=== PATIENT | female | born 1940 | race Caucasian/White ===

== ENCOUNTER → 2018-11-04 10:38 | Outpatient (CLI) | payer MEDICARE, SELFPAY ==
--- NOTE | 2018-11-04 11:19 | US_ITS ---
US Arterial Lower Ext Rest History: Rest pain, claudication, ex-smoker ORDERING PHYSICIAN: Carlo Cross PATIENT AGE: 78 years TECHNIQUE: Segmental pressures obtained of both right and left leg. These are compared to brachial blood pressure to yield index at each level sampled including summary NINI. The data sheets from the procedure are available in PACS FINDINGS Rest study only performed today No prior studies available for comparison. Blood pressures reported are in millimeters mercury. RIGHT LEG NINI = 1.2. RIGHT LEG TBI=.8 Brachial BP: 101 Thigh BP: 119 Calf BP: 121 Ankle PT: 130 Ankle DP : 101 Digit =83 LEFT LEG NINI = 1.1 LEFT LEG TBI= .9 Brachial BPD: 105 Thigh BP: 118 Calf BP: 137 Ankle PT:115 Ankle DP: 121 Digit = 98 Pulses and waveforms: Waveforms are normal. Pulses were diminished IMPRESSION: The ABIs as reported above are within normal limits. Waveforms are also unremarkable with diminished pulses.
== END ==
PROVIDERS: PCP Nurse Practitioner Family; Visit Provider Neurological Surgery
DX: I70.213 Atherosclerosis of native arteries of extremities with intermittent claudication, bilateral legs (principal); M79.604 Pain in right leg; M79.605 Pain in left leg; R29.898 Other symptoms and signs involving the musculoskeletal system
CPT/HCPCS: 93923

== ENCOUNTER 2019-06-12 13:00 | Outpatient (RCR) | payer MEDICARE, SELFPAY | END 2019-07-03 14:00 | disposition home or self-care (01) | LOC: PT.CARL 13:00 | PROVIDERS: PCP Nurse Practitioner Family; Visit Provider Anesthesiology | DX: M48.062 Spinal stenosis, lumbar region with neurogenic claudication (principal); M79.606 Pain in leg, unspecified; R26.89 Other abnormalities of gait and mobility; M43.16 Spondylolisthesis, lumbar region; M54.16 Radiculopathy, lumbar region; Z98.1 Arthrodesis status | CPT/HCPCS: 97014; 97110; 97112; 97140; 97163; 97164; G0283 ==

== ENCOUNTER 2023-07-06 09:13 | Outpatient (CLI) | payer MEDICARE, SELFPAY | END 2023-07-06 23:59 | disposition home or self-care (01) | LOC: LAB.DROPOF 07-07 09:13 | PROVIDERS: PCP Nurse Practitioner; Visit Provider Nurse Practitioner | DX: L60.3 Nail dystrophy (principal) | CPT/HCPCS: 87102; 87206; 87220 ==

== ENCOUNTER 2023-10-05 11:25 | Outpatient (CLI) | payer MEDICARE, SELFPAY | END 2023-10-05 23:59 | disposition home or self-care (01) | LOC: LAB.DROPOF 10-06 09:58 | PROVIDERS: PCP Nurse Practitioner; Visit Provider Nurse Practitioner | DX: B35.1 Tinea unguium (principal); L60.3 Nail dystrophy; E11.65 Type 2 diabetes mellitus with hyperglycemia | CPT/HCPCS: 87102; 87206; 87220 ==